=== PATIENT | female | born 1945 | race Caucasian/White ===

== ENCOUNTER 2024-03-28 19:43 | Emergency (ER) | payer OTHER, MEDICARE ==
[2024-03-28] MEDS: Diphtheria,Pertussis(Acell),Tetanus Vaccine 0.5 ML Syringe IM ONE (21:10)
== END 2024-03-28 21:19 | disposition home or self-care (01) ==
LOC: VM.ED 19:43
DX: S01.01XA Laceration without foreign body of scalp, initial encounter (principal); Z23 Encounter for immunization; W01.198A Fall on same level from slipping, tripping and stumbling with subsequent striking against other object, initial encounter
CPT/HCPCS: 12001; 90471; 90715; 99283-25